=== PATIENT | female | born 1970 | race Caucasian/White ===

== ENCOUNTER 2024-03-02 10:03 | Day surgery (SDC) | payer BC ==
[2024-02-27 10:06] VITALS: BMI 24.4
[2024-03-02] MEDS ORDERED: GLUCAGON 1 MG KIT ONE (11:13)
[2024-03-02] MEDS ORDERED: PROPOFOL 120 ML ONE (11:29)
[2024-03-02 11:51] VITALS: RESP 18; TEMP 97.4
[2024-03-02 12:29] VITALS: BP 96/70; PULSE 72
== END 2024-03-02 12:25 | disposition home or self-care (01) ==
LOC: FASU-ENDO 10:03
PROVIDERS: ATTEND Internal Medicine Gastroenterology
PROC: 0DJD8ZZ Inspection of Lower Intestinal Tract, Via Natural or Artificial Opening Endoscopic (ICD-10-PCS; principal; 2024-03-02 11:01)
DX: Z12.11 Encounter for screening for malignant neoplasm of colon (principal); K57.30 Diverticulosis of large intestine without perforation or abscess without bleeding